=== PATIENT | male | born 1945 | race Hispanic/Latino ===

== ENCOUNTER 2017-09-23 00:17 | Inpatient (IN) | payer OTHER ==
[2017-09-23] VITALS (27 sets, daily range): BP systolic 89–144; BP diastolic 54–88
[~2017-09-23] VITALS: Ht 177.8 cm; Wt 70.5 kg
[~2017-09-23 00:17] MED LIST: ASPI-1197 PO; CELE-84 PO; CINN500C PO; FENO135C4 PO; ICOS1CAP PO; INVOK100TB PO; LACT10SO9 PO; LOSA25TA21 PO; METF500T6 PO; OMEG-75 PO; PANT40TA25 PO
[2017-09-23] MEDS ORDERED: IBUPROFEN 400 MG TABLET ONE (00:48)
[2017-09-23 01:05] LABS: APPEARANCE,URINE Clear (CLEAR); BILIRUBIN,URINE Negative (NEGATIVE); COLOR,URINE Dark Yellow (YELLOW); GLUCOSE, URINE (UA) >=1000 mg/dL (NEGATIVE); KETONES,URINE Negative (NEGATIVE); LEUKOCYTE ESTERASE ,URINE Negative (NEGATIVE); NITRATE,URINE Negative (NEGATIVE); OCCULT BLOOD,URINE Negative (NEGATIVE); PROTEIN,URINE Trace (NEGATIVE)
[2017-09-23 01:11] LABS: AMORPHOUS SEDIMENT,UR Few /LPF (None Seen); BACTERIA,URINE None Seen /HPF (None Seen); RBC,URINE None Seen /HPF (0-1); SQUAMOUS EPITHELIAL CELL,UR Rare /LPF (0-2); WBC,URINE None Seen /HPF (0-1); YEAST,URINE BUDDING None Seen /HPF (None Seen)
[2017-09-23] MEDS ORDERED: SODIUM CHLORIDE 0.9% 1000ML 1,000 ML IV ONE (04:18)
[2017-09-23] MEDS ORDERED: ONDANSETRON HCL 4 MG/2 ML VIAL ONE ×3 (04:18→15:27)
[2017-09-23] MEDS ORDERED: MORPHINE SULFATE 4 MG/1ML SYG ONE ×2 (04:19→11:15)
[2017-09-23 04:23] LABS: HEMATOCRIT 30.1 % (42-54); MEAN CORPUSCULAR HEMOGLOBIN 25.7 pg (27.0-33.0); MEAN CORPUSCULAR HGB CONC 33.8 g/dL (32.0-36.0); MEAN CORPUSCULAR VOLUME 76.1 fL (79-99); NUCLEATED RED BLOOD CELLS 0.1 % (0.0-0.19); PLATELET COUNT (AUTO) 245 K/uL (130-400); RED BLOOD CELL COUNT(AUTO) 3.95 MIL/uL (4.50-6.20); RED CELL DISTRIBUTION WIDTH 15.8 % (11.0-15.5); WHITE BLOOD COUNT (AUTO) 1.8 K/uL (4.8-10.8)
[2017-09-23 04:33] LABS: CREATININE 1.3 mg/dL (0.5-1.5); POTASSIUM 4.5 mmol/L (3.5-5.1)
[2017-09-23] MEDS ORDERED: IOPAMIDOL-370 75 ML VIAL IV ONE (04:39)
[2017-09-23 04:49] LABS: BAND NEUTROPHILS % (MANUAL) 21 % (0-2); LYMPHOCYTES % (MANUAL) 28 % (22-44); MAN.DIFF COMMENT-IMPRESSION MANUAL DIFFERENTIAL; METAMYELOCYTES % 2 % (0-0); MONOCYTES % (MANUAL) 5 % (2-9); REACTIVE LYMPHOCYTES 1 % (0-0); SEGMENTED NEUTROPHILS % 43 % (40-70)
[2017-09-23] MEDS ORDERED: ZOSYN 3.375GM+NS 50ML 50 ML IV ONE (06:46)
[2017-09-23] MEDS ORDERED: LIDOCAINE PF 2% 5ML ABBOJECT ONE (15:27)
[2017-09-23] MEDS ORDERED: ROCURONIUM BROMIDE 10MG/1ML 5ML VL ONE (15:27)
[2017-09-23] MEDS ORDERED: LIDOCAINE HCL-MPF 1% 5ML AMP IJ ONE (15:27)
[2017-09-23] MEDS ORDERED: DEXAMETHASONE SOD PHOSPHATE 10MG/ML 1ML VIAL ONE (15:27)
[2017-09-23] MEDS ORDERED: LIDOCAINE HCL 2% JELLY 5 ML ONE (15:27)
[2017-09-23] MEDS ORDERED: PHENYLEPHRINE HCL 10 MG/ML 1ML VIAL IV ONE (15:27)
[2017-09-23] MEDS ORDERED: NEOSTIGMINE METHYLSULFATE 1MG/ML IV ONE (15:27)
[2017-09-23] MEDS ORDERED: GLYCOPYRROLATE 0.2 MG/ML 5 ML VIAL ONE (15:27)
[2017-09-23] MEDS ORDERED: MIDAZOLAM HCL 1 MG/ML 2ML VIAL ONE (15:28)
[2017-09-23] MEDS ORDERED: FENTANYL CITRATE PF 50 MCG/1 ML 2ML VIAL ONE (15:28)
[2017-09-23] MEDS: SODIUM CHLORIDE 0.9% 1000ML 1,000 ML IV SCH (16:15)
[2017-09-23] MEDS ORDERED: MORPHINE SULFATE 2 MG/ML 1ML SYG IVP PRN (16:15)
[2017-09-23] MEDS ORDERED: HYDROCODONE/ACETAMINOPHEN 5/325 MG TAB PO PRN (16:15)
[2017-09-23] MEDS ORDERED: ISOVUE-370 50ML VIAL IV ONE (16:45)
[2017-09-23] MEDS ORDERED: BUPIVACAINE/PF 0.5% 30ML VIAL ONE (16:47)
[2017-09-23] MEDS ORDERED: ALBUMIN (HUMAN) 25% 50 ML IV ONE (16:51)
[2017-09-23] MEDS ORDERED: ZOSYN 3.375GM+NS 50ML 50 ML IV SCH (17:00)
[2017-09-23 18:35] LABS: CREATININE 1.1 mg/dL (0.5-1.5); POTASSIUM 4.5 mmol/L (3.5-5.1)
[2017-09-23] MEDS ORDERED: MEPERIDINE-PF 25 MG/ML SYG IV PRN (19:15)
[2017-09-23] MEDS ORDERED: TRAMADOL HCL 50 MG TABLET PO PRN (19:15)
[2017-09-23] MEDS ORDERED: ACETAMINOPHEN 325 MG TAB PO PRN (19:15)
[2017-09-23] MEDS ORDERED: UNASYN 3GM+NS 100ML 100 ML IV SCH (20:00)
[2017-09-24] VITALS: BP 94/58
[2017-09-24] MEDS: SODIUM CHLORIDE 0.9% 1000ML 1,000 ML IV SCH (02:15)
[2017-09-24 04:00] VITALS: BP 93/55
[2017-09-24] MEDS: ZOSYN 3.375GM+NS 50ML 50 ML IV SCH ×3 (04:00→20:40)
[2017-09-24] MEDS: ONDANSETRON HCL 4 MG/2 ML VIAL IVP PRN ×2 (05:37→12:21)
[2017-09-24 05:52] LABS: HEMATOCRIT 27.8 % (42-54); MEAN CORPUSCULAR HEMOGLOBIN 25.8 pg (27.0-33.0); MEAN CORPUSCULAR HGB CONC 33.5 g/dL (32.0-36.0); MEAN CORPUSCULAR VOLUME 76.8 fL (79-99); PLATELET COUNT (AUTO) 226 K/uL (130-400); RED BLOOD CELL COUNT(AUTO) 3.61 MIL/uL (4.50-6.20); RED CELL DISTRIBUTION WIDTH 16.4 % (11.0-15.5); WHITE BLOOD COUNT (AUTO) 3.2 K/uL (4.8-10.8)
[2017-09-24 05:53] LABS: CREATININE 0.9 mg/dL (0.5-1.5); POTASSIUM 4.5 mmol/L (3.5-5.1)
[2017-09-24 08:00] VITALS: BP 101/66
[2017-09-24 11:57] VITALS: BP 100/67
[2017-09-24] MEDS ORDERED: FUROSEMIDE 10 MG/ML 2ML VIAL IV SCH (12:15)
[2017-09-24] MEDS ORDERED: IPRATROPIUM/ALBUTEROL SULFATE 3 ML SOLUTION IH SCH (15:43)
[2017-09-24 16:00] VITALS: BP 105/68
[2017-09-24] MEDS: IPRATROPIUM/ALBUTEROL SULFATE 3 ML SOLUTION IH SCH (17:35)
[2017-09-24] MEDS: TRAMADOL HCL 50 MG TABLET PO PRN (18:04)
[2017-09-24 19:00] VITALS: BP 119/67
[2017-09-25] VITALS: BP 102/64
[2017-09-25] MEDS: IPRATROPIUM/ALBUTEROL SULFATE 3 ML SOLUTION IH SCH ×4 (00:15→18:11)
[2017-09-25 04:00] VITALS: BP 100/62
[2017-09-25 05:13] LABS: HEMATOCRIT 25.5 % (42-54); MEAN CORPUSCULAR HEMOGLOBIN 26.9 pg (27.0-33.0); MEAN CORPUSCULAR HGB CONC 34.8 g/dL (32.0-36.0); MEAN CORPUSCULAR VOLUME 77.2 fL (79-99); PLATELET COUNT (AUTO) 196 K/uL (130-400); RED BLOOD CELL COUNT(AUTO) 3.31 MIL/uL (4.50-6.20); RED CELL DISTRIBUTION WIDTH 16.3 % (11.0-15.5)
[2017-09-25 05:20] LABS: CREATININE 0.8 mg/dL (0.5-1.5)
[2017-09-25] MEDS: ZOSYN 3.375GM+NS 50ML 50 ML IV SCH ×3 (05:56→20:41)
[2017-09-25 08:00] VITALS: BP 104/71
[2017-09-25 12:00] VITALS: BP 96/56
[2017-09-25 16:00] VITALS: BP 101/68
[2017-09-25 19:00] VITALS: BP 105/70
[2017-09-25] MEDS: SODIUM CHLORIDE 0.9% 1000ML 1,000 ML IV SCH (20:47)
[2017-09-26] VITALS: BP 107/72
[2017-09-26] MEDS: IPRATROPIUM/ALBUTEROL SULFATE 3 ML SOLUTION IH SCH ×5 (00:36→23:57)
[2017-09-26 03:51] VITALS: BP 113/70
[2017-09-26] MEDS: ZOSYN 3.375GM+NS 50ML 50 ML IV SCH ×3 (04:35→20:37)
[2017-09-26 05:59] LABS: HEMATOCRIT 25.4 % (42-54); MEAN CORPUSCULAR HEMOGLOBIN 26.1 pg (27.0-33.0); MEAN CORPUSCULAR VOLUME 76.8 fL (79-99); PLATELET COUNT (AUTO) 172 K/uL (130-400); RED BLOOD CELL COUNT(AUTO) 3.31 MIL/uL (4.50-6.20); RED CELL DISTRIBUTION WIDTH 16.6 % (11.0-15.5)
[2017-09-26 06:07] LABS: CREATININE 0.7 mg/dL (0.5-1.5); POTASSIUM 3.8 mmol/L (3.5-5.1)
[2017-09-26 07:56] VITALS: BP 112/73
[2017-09-26] MEDS ORDERED: MAGNESIUM CITRATE 296 ML SOLUTION PO ONE (08:15)
[2017-09-26] MEDS ORDERED: BISACODYL 10 MG SUPP.RECT RC ONE (09:00)
[2017-09-26] MEDS: DOCUSATE SODIUM 100 MG CAP PO SCH ×2 (09:26→20:37)
[2017-09-26] MEDS: MAG HYDROX/AL HYDROX/SIMETH ES 30 ML SUSP UDCUP PO SCH (09:26)
[2017-09-26] MEDS ORDERED: MAGNESIUM CITRATE 296 ML SOLUTION PO SCH (10:00)
[2017-09-26 11:55] VITALS: BP 123/80
[2017-09-26] MEDS ORDERED: METOCLOPRAMIDE 10 MG/2 ML VIAL ONE (12:07)
[2017-09-26] MEDS: ONDANSETRON HCL 4 MG/2 ML VIAL IVP PRN (12:17)
[2017-09-26 16:09] VITALS: BP 104/73
[2017-09-26 20:40] VITALS: BP 122/74
[2017-09-26] MEDS: TRAMADOL HCL 50 MG TABLET PO PRN (20:52)
[2017-09-27 00:20] VITALS: BP 124/74
[2017-09-27] MEDS: METOCLOPRAMIDE 10 MG/2 ML VIAL IVP PRN ×3 (02:35→16:12)
[2017-09-27] MEDS: ZOSYN 3.375GM+NS 50ML 50 ML IV SCH ×3 (03:23→20:32)
[2017-09-27 03:46] VITALS: BP 107/69
[2017-09-27 05:43] LABS: MEAN CORPUSCULAR HEMOGLOBIN 26.5 pg (27.0-33.0); MEAN CORPUSCULAR HGB CONC 34.5 g/dL (32.0-36.0); MEAN CORPUSCULAR VOLUME 76.9 fL (79-99); NUCLEATED RED BLOOD CELLS 0.1 % (0.0-0.19); PLATELET COUNT (AUTO) 181 K/uL (130-400); RED BLOOD CELL COUNT(AUTO) 3.51 MIL/uL (4.50-6.20); WHITE BLOOD COUNT (AUTO) 4.9 K/uL (4.8-10.8)
[2017-09-27 05:53] LABS: CREATININE 0.7 mg/dL (0.5-1.5); POTASSIUM 3.7 mmol/L (3.5-5.1)
[2017-09-27] MEDS: IPRATROPIUM/ALBUTEROL SULFATE 3 ML SOLUTION IH SCH ×3 (06:50→18:42)
[2017-09-27 08:00] VITALS: BP 112/74
[2017-09-27] MEDS: ONDANSETRON HCL 4 MG/2 ML VIAL IVP PRN (08:33)
[2017-09-27] MEDS: DOCUSATE SODIUM 100 MG CAP PO SCH ×2 (08:33→20:30)
[2017-09-27] MEDS: SODIUM CHLORIDE 0.9% 1000ML 1,000 ML IV SCH (08:46)
[2017-09-27] MEDS: MAG HYDROX/AL HYDROX/SIMETH ES 30 ML SUSP UDCUP PO SCH (09:00)
[2017-09-27] MEDS ORDERED: DIATR MEGLU/DIATRIZOATE SODIUM 30 ML BOTTLE PO ONE (09:25)
[2017-09-27 16:00] VITALS: BP 121/90
[2017-09-27 20:23] VITALS: BP 112/78
[2017-09-27 23:39] VITALS: BP 110/73
[2017-09-28] VITALS (7 sets, daily range): BP systolic 98–110; BP diastolic 58–68
[2017-09-28] MEDS: IPRATROPIUM/ALBUTEROL SULFATE 3 ML SOLUTION IH SCH ×4 (00:38→19:10)
[2017-09-28] MEDS: ZOSYN 3.375GM+NS 50ML 50 ML IV SCH ×3 (03:45→21:31)
[2017-09-28 04:11] LABS: HEMATOCRIT 25.2 % (42-54); MEAN CORPUSCULAR HEMOGLOBIN 25.8 pg (27.0-33.0); MEAN CORPUSCULAR HGB CONC 33.5 g/dL (32.0-36.0); MEAN CORPUSCULAR VOLUME 76.8 fL (79-99); NUCLEATED RED BLOOD CELLS 0.1 % (0.0-0.19); PLATELET COUNT (AUTO) 172 K/uL (130-400); RED BLOOD CELL COUNT(AUTO) 3.28 MIL/uL (4.50-6.20); RED CELL DISTRIBUTION WIDTH 16.5 % (11.0-15.5); WHITE BLOOD COUNT (AUTO) 5.1 K/uL (4.8-10.8)
[2017-09-28 04:13] LABS: CREATININE 0.8 mg/dL (0.5-1.5); POTASSIUM 3.6 mmol/L (3.5-5.1)
[2017-09-28] MEDS ORDERED: DIATR MEGLU/DIATRIZOATE SODIUM 30 ML BOTTLE PO ONE (07:06)
[2017-09-28] MEDS ORDERED: IOPAMIDOL-370 75 ML VIAL IV ONE (07:06)
[2017-09-28] MEDS: MAG HYDROX/AL HYDROX/SIMETH ES 30 ML SUSP UDCUP PO SCH (12:38)
[2017-09-28] MEDS: DOCUSATE SODIUM 100 MG CAP PO SCH ×2 (12:38→21:29)
[2017-09-29] MEDS: IPRATROPIUM/ALBUTEROL SULFATE 3 ML SOLUTION IH SCH ×5 (00:06→23:44)
[2017-09-29 04:00] VITALS: BP 103/62
[2017-09-29 04:02] LABS: HEMATOCRIT 21.7 % (42-54); MEAN CORPUSCULAR HEMOGLOBIN 26.6 pg (27.0-33.0); MEAN CORPUSCULAR HGB CONC 34.6 g/dL (32.0-36.0); MEAN CORPUSCULAR VOLUME 76.9 fL (79-99); NUCLEATED RED BLOOD CELLS 0.2 % (0.0-0.19); PLATELET COUNT (AUTO) 163 K/uL (130-400); RED BLOOD CELL COUNT(AUTO) 2.83 MIL/uL (4.50-6.20); RED CELL DISTRIBUTION WIDTH 16.4 % (11.0-15.5)
[2017-09-29 04:13] LABS: CREATININE 0.6 mg/dL (0.5-1.5)
[2017-09-29] MEDS: ZOSYN 3.375GM+NS 50ML 50 ML IV SCH ×3 (05:23→21:04)
[2017-09-29 08:00] VITALS: BP 103/65
[2017-09-29 08:39] LABS: INR 1.04 (0.85-1.15); PROTHROMBIN TIME 10.9 SEC (9.6-11.6)
[2017-09-29] MEDS: DOCUSATE SODIUM 100 MG CAP PO SCH ×2 (09:00→21:06)
[2017-09-29] MEDS: MAG HYDROX/AL HYDROX/SIMETH ES 30 ML SUSP UDCUP PO SCH (09:00)
[2017-09-29 11:00] VITALS: BP 100/65
[2017-09-29] MEDS ORDERED: FENTANYL CITRATE PF 50 MCG/1 ML 2ML VIAL ONE (13:15)
[2017-09-29 16:00] VITALS: BP 118/65
[2017-09-29] MEDS ORDERED: LORAZEPAM 2 MG/ML 1 ML VIAL IVP PRN (18:45)
[2017-09-29 19:00] VITALS: BP 100/48
[2017-09-29] MEDS ORDERED: METOCLOPRAMIDE 10 MG TABLET ONE (21:14)
[2017-09-29] MEDS: METOCLOPRAMIDE 10 MG TABLET PO SCH (21:16)
[2017-09-29 23:47] VITALS: BP 115/69
[2017-09-30] MEDS: ZOSYN 3.375GM+NS 50ML 50 ML IV SCH ×3 (03:06→20:32)
[2017-09-30 04:00] VITALS: BP 109/63
[2017-09-30 04:22] LABS: HEMATOCRIT 21.5 % (42-54); MEAN CORPUSCULAR HEMOGLOBIN 27.2 pg (27.0-33.0); MEAN CORPUSCULAR HGB CONC 35.5 g/dL (32.0-36.0); MEAN CORPUSCULAR VOLUME 76.6 fL (79-99); NUCLEATED RED BLOOD CELLS 0.1 % (0.0-0.19); PLATELET COUNT (AUTO) 183 K/uL (130-400); RED CELL DISTRIBUTION WIDTH 15.9 % (11.0-15.5); WHITE BLOOD COUNT (AUTO) 4.5 K/uL (4.8-10.8)
[2017-09-30 04:44] LABS: CREATININE 0.5 mg/dL (0.5-1.5)
[2017-09-30 05:02] LABS: POTASSIUM 2.7 mmol/L (3.5-5.1)
[2017-09-30] MEDS: METOCLOPRAMIDE 10 MG TABLET PO SCH ×3 (06:17→18:26)
[2017-09-30] MEDS: IPRATROPIUM/ALBUTEROL SULFATE 3 ML SOLUTION IH SCH ×4 (06:27→23:32)
[2017-09-30] MEDS ORDERED: POTASSIUM CHLORIDE 10% ELIXIR 20 MEQ/15 ML UDCUP PO PRN (08:00)
[2017-09-30] MEDS ORDERED: LIDOCAINE HCL-MPF 1% 2ML VIAL IVP PRN (08:00)
[2017-09-30] MEDS: MAG HYDROX/AL HYDROX/SIMETH ES 30 ML SUSP UDCUP PO SCH (09:00)
[2017-09-30 09:01] VITALS: BP 101/58
[2017-09-30] MEDS: DOCUSATE SODIUM 100 MG CAP PO SCH ×2 (09:01→20:32)
[2017-09-30] MEDS: LORAZEPAM 2 MG/ML 1 ML VIAL IVP PRN (10:59)
[2017-09-30] MEDS: POTASSIUM CHLORIDE 20 MEQ ERTAB PO PRN ×4 (11:22→18:26)
[2017-09-30 12:53] VITALS: BP 101/64
[2017-09-30] MEDS ORDERED: MAGNESIUM CITRATE 296 ML SOLUTION PO SCH (13:30)
[2017-09-30 16:00] VITALS: BP 98/57
[2017-09-30] MEDS: MAGNESIUM HYDROXIDE 30 ML/UDCUP PO SCH (16:06)
[2017-09-30] MEDS: BISACODYL 10 MG SUPP.RECT RC SCH (16:07)
[2017-09-30 19:10] VITALS: BP 115/71
[2017-09-30 23:00] VITALS: BP 96/58
[2017-10-01] MEDS: METOCLOPRAMIDE 10 MG TABLET PO SCH ×4 (01:50→17:21)
[2017-10-01 03:00] VITALS: BP 95/56
[2017-10-01 04:08] LABS: HEMATOCRIT 22.8 % (42-54); MEAN CORPUSCULAR HEMOGLOBIN 26.8 pg (27.0-33.0); MEAN CORPUSCULAR HGB CONC 34.9 g/dL (32.0-36.0); MEAN CORPUSCULAR VOLUME 76.8 fL (79-99); NUCLEATED RED BLOOD CELLS 0.4 % (0.0-0.19); PLATELET COUNT (AUTO) 228 K/uL (130-400); RED BLOOD CELL COUNT(AUTO) 2.97 MIL/uL (4.50-6.20); RED CELL DISTRIBUTION WIDTH 15.9 % (11.0-15.5); WHITE BLOOD COUNT (AUTO) 4.5 K/uL (4.8-10.8)
[2017-10-01 04:23] LABS: CREATININE 0.5 mg/dL (0.5-1.5)
[2017-10-01 04:26] LABS: POTASSIUM 2.8 mmol/L (3.5-5.1)
[2017-10-01] MEDS: ZOSYN 3.375GM+NS 50ML 50 ML IV SCH ×3 (04:31→21:06)
[2017-10-01] MEDS: POTASSIUM CHLORIDE 20MEQ/100ML 100 ML IV PRN ×2 (04:34→17:19)
[2017-10-01] MEDS: IPRATROPIUM/ALBUTEROL SULFATE 3 ML SOLUTION IH SCH ×4 (07:38→23:48)
[2017-10-01 08:19] VITALS: BP 104/67
[2017-10-01] MEDS: DOCUSATE SODIUM 100 MG CAP PO SCH ×2 (09:13→21:06)
[2017-10-01] MEDS: MAGNESIUM HYDROXIDE 30 ML/UDCUP PO SCH (09:13)
[2017-10-01] MEDS: LORAZEPAM 2 MG/ML 1 ML VIAL IVP PRN (09:29)
[2017-10-01] MEDS: MAG HYDROX/AL HYDROX/SIMETH ES 30 ML SUSP UDCUP PO SCH (10:53)
[2017-10-01 12:18] VITALS: BP 95/57
[2017-10-01] MEDS: BISACODYL 10 MG SUPP.RECT RC SCH (13:30)
[2017-10-01 15:46] VITALS: BP 101/62
[2017-10-01 19:00] VITALS: BP 109/69
[2017-10-01 23:00] VITALS: BP 104/60
[2017-10-02] MEDS: METOCLOPRAMIDE 10 MG TABLET PO SCH ×4 (00:45→17:06)
[2017-10-02 03:00] VITALS: BP 100/60
[2017-10-02] MEDS: ZOSYN 3.375GM+NS 50ML 50 ML IV SCH ×3 (04:23→19:58)
[2017-10-02 05:48] LABS: CREATININE 0.6 mg/dL (0.5-1.5); POTASSIUM 3.6 mmol/L (3.5-5.1)
[2017-10-02] MEDS: IPRATROPIUM/ALBUTEROL SULFATE 3 ML SOLUTION IH SCH ×4 (06:01→23:44)
[2017-10-02 08:04] VITALS: BP 105/64
[2017-10-02] MEDS: DOCUSATE SODIUM 100 MG CAP PO SCH ×2 (08:18→19:58)
[2017-10-02] MEDS: MAGNESIUM HYDROXIDE 30 ML/UDCUP PO SCH ×2 (08:19→13:44)
[2017-10-02] MEDS: MAG HYDROX/AL HYDROX/SIMETH ES 30 ML SUSP UDCUP PO SCH (08:51)
[2017-10-02 11:54] VITALS: BP 131/62
[2017-10-02] MEDS: POTASSIUM CHLORIDE 20 MEQ ERTAB PO PRN ×2 (13:44→17:07)
[2017-10-02 16:27] VITALS: BP 110/68
[2017-10-02 19:00] VITALS: BP 110/74
[2017-10-02] MEDS: TRAMADOL HCL 50 MG TABLET PO PRN (19:59)
[2017-10-02 23:00] VITALS: BP 108/63
[2017-10-03] MEDS: METOCLOPRAMIDE 10 MG TABLET PO SCH ×4 (00:14→23:34)
[2017-10-03 03:00] VITALS: BP 100/64
[2017-10-03] MEDS ORDERED: MORPHINE SULFATE 2 MG/ML 1ML SYG ONE (03:07)
[2017-10-03] MEDS: ZOSYN 3.375GM+NS 50ML 50 ML IV SCH ×3 (03:11→20:54)
[2017-10-03] MEDS: ONDANSETRON HCL 4 MG/2 ML VIAL IVP PRN (03:12)
[2017-10-03] MEDS ORDERED: MORPHINE SULFATE 2 MG/ML 1ML SYG IVP PRN (03:15)
[2017-10-03 05:51] LABS: HEMATOCRIT 23.9 % (42-54); MEAN CORPUSCULAR HEMOGLOBIN 26.9 pg (27.0-33.0); MEAN CORPUSCULAR HGB CONC 34.4 g/dL (32.0-36.0); MEAN CORPUSCULAR VOLUME 78.2 fL (79-99); NUCLEATED RED BLOOD CELLS 0.3 % (0.0-0.19); PLATELET COUNT (AUTO) 340 K/uL (130-400); RED BLOOD CELL COUNT(AUTO) 3.06 MIL/uL (4.50-6.20); RED CELL DISTRIBUTION WIDTH 16.5 % (11.0-15.5); WHITE BLOOD COUNT (AUTO) 6.6 K/uL (4.8-10.8)
[2017-10-03 06:00] LABS: CREATININE 0.5 mg/dL (0.5-1.5); POTASSIUM 3.7 mmol/L (3.5-5.1)
[2017-10-03] MEDS: METFORMIN HCL 500 MG TABLET PO SCH (06:25)
[2017-10-03] MEDS: IPRATROPIUM/ALBUTEROL SULFATE 3 ML SOLUTION IH SCH ×3 (06:52→18:02)
[2017-10-03 08:00] VITALS: BP_SYST 100; BP_SYST 111; BP_DIAS 62; BP_DIAS 66
[2017-10-03] MEDS: LOSARTAN 50 MG TABLET PO SCH (09:00)
[2017-10-03] MEDS: FISH OIL 1000 MG/CAP PO SCH ×2 (09:04→20:54)
[2017-10-03] MEDS: CELECOXIB 200 MG CAP PO SCH (09:04)
[2017-10-03] MEDS: FENOFIBRATE NANOCRYSTALLIZED 145 MG TAB PO SCH (09:05)
[2017-10-03] MEDS: DOCUSATE SODIUM 100 MG CAP PO SCH ×2 (09:05→20:54)
[2017-10-03] MEDS: PANTOPRAZOLE SODIUM 40 MG TABLET.DR PO SCH (09:05)
[2017-10-03] MEDS: ASPIRIN 81MG TAB.CHEW PO SCH (09:06)
[2017-10-03] MEDS: MAG HYDROX/AL HYDROX/SIMETH ES 30 ML SUSP UDCUP PO SCH (09:16)
[2017-10-03 11:00] VITALS: BP 100/62
[2017-10-03 16:00] VITALS: BP 104/58
[2017-10-03 19:00] VITALS: BP 97/55
[2017-10-03] MEDS: TRAMADOL HCL 50 MG TABLET PO PRN (20:55)
[2017-10-03 23:00] VITALS: BP 90/60
[2017-10-04] VITALS (7 sets, daily range): BP systolic 86–120; BP diastolic 52–76
[2017-10-04] MEDS ORDERED: ALBUTEROL SULFATE 0.083% 2.5 MG/3 ML INH IH ONE (00:19)
[2017-10-04] MEDS ORDERED: IPRATROPIUM 0.5 MG/2.5 ML INH IH ONE (00:19)
[2017-10-04] MEDS: ZOSYN 3.375GM+NS 50ML 50 ML IV SCH ×3 (03:58→21:01)
[2017-10-04] MEDS: METOCLOPRAMIDE 10 MG TABLET PO SCH ×3 (06:06→17:47)
[2017-10-04] MEDS: METFORMIN HCL 500 MG TABLET PO SCH ×2 (06:06→09:06)
[2017-10-04] MEDS: IPRATROPIUM/ALBUTEROL SULFATE 3 ML SOLUTION IH SCH ×4 (06:58→20:31)
[2017-10-04] MEDS: ASPIRIN 81MG TAB.CHEW PO SCH (09:06)
[2017-10-04] MEDS: DOCUSATE SODIUM 100 MG CAP PO SCH ×2 (09:06→21:01)
[2017-10-04] MEDS: FENOFIBRATE NANOCRYSTALLIZED 145 MG TAB PO SCH (09:06)
[2017-10-04] MEDS: PANTOPRAZOLE SODIUM 40 MG TABLET.DR PO SCH (09:06)
[2017-10-04] MEDS: FISH OIL 1000 MG/CAP PO SCH ×2 (09:06→21:01)
[2017-10-04] MEDS: LOSARTAN 50 MG TABLET PO SCH (09:07)
[2017-10-04] MEDS: CELECOXIB 200 MG CAP PO SCH (09:07)
[2017-10-05] VITALS (7 sets, daily range): BP systolic 82–102; BP diastolic 46–67
[2017-10-05] MEDS: METOCLOPRAMIDE 10 MG TABLET PO SCH ×5 (00:18→23:23)
[2017-10-05] MEDS: IPRATROPIUM/ALBUTEROL SULFATE 3 ML SOLUTION IH SCH ×5 (01:12→23:34)
[2017-10-05] MEDS: ZOSYN 3.375GM+NS 50ML 50 ML IV SCH ×2 (03:10→12:18)
[2017-10-05] MEDS: METFORMIN HCL 500 MG TABLET PO SCH ×3 (06:22→17:57)
[2017-10-05] MEDS: CELECOXIB 200 MG CAP PO SCH (08:49)
[2017-10-05] MEDS: LOSARTAN 50 MG TABLET PO SCH (08:49)
[2017-10-05] MEDS: FENOFIBRATE NANOCRYSTALLIZED 145 MG TAB PO SCH (08:49)
[2017-10-05] MEDS: PANTOPRAZOLE SODIUM 40 MG TABLET.DR PO SCH (08:49)
[2017-10-05] MEDS: DOCUSATE SODIUM 100 MG CAP PO SCH ×2 (08:49→20:59)
[2017-10-05] MEDS: ASPIRIN 81MG TAB.CHEW PO SCH (08:49)
[2017-10-05] MEDS ORDERED: CEFTRIAXONE 2GM+NS 100ML 100 ML IV SCH (17:00)
[2017-10-05] MEDS ORDERED: WATER FOR INJECTION,STERILE 20 ML VIAL IJ SCH (18:00)
[2017-10-05] MEDS ORDERED: CEFTRIAXONE SODIUM 2 GM VIAL IVP SCH (18:00)
[2017-10-05] MEDS: FISH OIL 1000 MG/CAP PO SCH (20:59)
[2017-10-05] MEDS: BENZOCAINE/MENTH/CETYLPYRD CL 1 EACH LOZENGE MM PRN (22:01)
[2017-10-06] VITALS (7 sets, daily range): BP systolic 86–102; BP diastolic 54–65
[2017-10-06] MEDS: BENZOCAINE/MENTH/CETYLPYRD CL 1 EACH LOZENGE MM PRN (02:51)
[2017-10-06 04:15] LABS: HEMATOCRIT 23.5 % (42-54); MEAN CORPUSCULAR HGB CONC 33.1 g/dL (32.0-36.0); MEAN CORPUSCULAR VOLUME 78.4 fL (79-99); NUCLEATED RED BLOOD CELLS 0.1 % (0.0-0.19); PLATELET COUNT (AUTO) 426 K/uL (130-400); RED CELL DISTRIBUTION WIDTH 17.4 % (11.0-15.5); WHITE BLOOD COUNT (AUTO) 10.1 K/uL (4.8-10.8)
[2017-10-06 04:32] LABS: ALBUMIN 1.6 g/dL (3.5-5.0); BILIRUBIN,TOTAL 0.4 mg/dL (0.2-1.0); CREATININE 0.7 mg/dL (0.5-1.5); MAGNESIUM 1.9 mg/dL (1.80-2.40); POTASSIUM 3.8 mmol/L (3.5-5.1); TOTAL PROTEIN, SERUM 5.6 g/dL (6.0-8.3)
[2017-10-06] MEDS: METOCLOPRAMIDE 10 MG TABLET PO SCH ×2 (05:36→13:01)
[2017-10-06] MEDS: IPRATROPIUM/ALBUTEROL SULFATE 3 ML SOLUTION IH SCH ×2 (06:39→11:15)
[2017-10-06] MEDS: METFORMIN HCL 500 MG TABLET PO SCH ×2 (06:39→13:02)
[2017-10-06] MEDS ORDERED: LIDOCAINE HCL 1% MDV 50ML VIAL ONE (10:38)
[2017-10-06] MEDS ORDERED: ISOVUE-300 100 ML VIAL IV ONE (10:38)
[2017-10-06] MEDS: LOSARTAN 50 MG TABLET PO SCH (13:01)
[2017-10-06] MEDS: FENOFIBRATE NANOCRYSTALLIZED 145 MG TAB PO SCH (13:01)
[2017-10-06] MEDS: CELECOXIB 200 MG CAP PO SCH (13:01)
[2017-10-06] MEDS: PANTOPRAZOLE SODIUM 40 MG TABLET.DR PO SCH (13:02)
[2017-10-06] MEDS: DOCUSATE SODIUM 100 MG CAP PO SCH (13:02)
[2017-10-06] MEDS: ASPIRIN 81MG TAB.CHEW PO SCH (13:02)
[2017-10-06] MEDS: FISH OIL 1000 MG/CAP PO SCH (13:02)
== END 2017-10-06 17:20 | DRG 853 ==
LOC: EDH 00:17 → EDHIP 07:55 → 3BH 12:40
PROVIDERS: ADMIT Internal Medicine; ATTEND Internal Medicine
PROC: 0BH17EZ Insertion of Endotracheal Airway into Trachea, Via Natural or Artificial Opening (ICD-10-PCS; 2017-09-23)
PROC: BF101ZZ Fluoroscopy of Bile Ducts using Low Osmolar Contrast (ICD-10-PCS; 2017-09-23)
PROC: 0FT44ZZ Resection of Gallbladder, Percutaneous Endoscopic Approach (ICD-10-PCS; principal; 2017-09-23 16:15)
PROC: 5A1935Z Respiratory Ventilation, Less than 24 Consecutive Hours (ICD-10-PCS; 2017-09-23 16:15)
DX: A41.9 Sepsis, unspecified organism (principal); K65.8 Other peritonitis; E87.70 Fluid overload, unspecified; K81.2 Acute cholecystitis with chronic cholecystitis; D70.1 Agranulocytosis secondary to cancer chemotherapy; J44.9 Chronic obstructive pulmonary disease, unspecified; D64.9 Anemia, unspecified; E11.9 Type 2 diabetes mellitus without complications; E66.9 Obesity, unspecified; E87.6 Hypokalemia; T45.1X5A Adverse effect of antineoplastic and immunosuppressive drugs, initial encounter; E78.5 Hyperlipidemia, unspecified; I10 Essential (primary) hypertension; K82.8 Other specified diseases of gallbladder; Z68.22 Body mass index [BMI] 22.0-22.9, adult; Z85.048 Personal history of other malignant neoplasm of rectum, rectosigmoid junction, and anus; Z80.6 Family history of leukemia
CPT/HCPCS: 10030; 36415; 49424; 71010; 74177; 74250; 74300; 76080; 76705; 77012; 80048; 80053; 81001; 82948; 83735; 85025; 85027; 85610; 85730; 87071; 87076; 87205; 88304; 94002; 94640; 94664; 97039; C1758; J0295; J0696; J1100; J1940; J2001; J2060; J2175; J2250; J2270; J2370; J2405; J2543; J2710; J2765; J3010; J3480; J3490; J7030; P9047; Q9963; Q9967

== ENCOUNTER 2017-10-25 07:07 | Day surgery (SDC) | payer OTHER ==
[~2017-10-25] VITALS: Ht 177.8 cm; Wt 63.5 kg
[2017-10-25 08:09] VITALS: BP 91/64
[2017-10-25] MEDS ORDERED: ISOVUE-370 50ML VIAL IV ONE (08:56)
[2017-10-25 09:41] VITALS: BP 89/56
[2017-10-25 09:55] VITALS: BP 90/56
[2017-10-25 10:10] VITALS: BP 90/56
== END 2017-10-25 10:10 ==
LOC: CLH 07:07 → DAH 07:07 → CLH 10:10
PROVIDERS: ATTEND Internal Medicine Infectious Disease
DX: T81.4XXA Infection following a procedure, initial encounter (principal); K65.1 Peritoneal abscess; I10 Essential (primary) hypertension; E11.9 Type 2 diabetes mellitus without complications; E78.5 Hyperlipidemia, unspecified; Z79.899 Other long term (current) drug therapy; Z79.84 Long term (current) use of oral hypoglycemic drugs; K21.9 Gastro-esophageal reflux disease without esophagitis
CPT/HCPCS: 49424; 76080; 82948; Q9967

== ENCOUNTER 2017-11-04 06:44 | Day surgery (SDC) | payer OTHER ==
[2017-11-04 07:10] VITALS: BP 94/62
[2017-11-04 07:31] VITALS: BP 98/65
[2017-11-04 08:24] LABS: BASOPHILS % (AUTO) 0.5 % (0.0-5.0); EOSINOPHILS % (AUTO) 0.5 % (0.0-8.0); HEMATOCRIT 22.7 % (42-54); LYMPHOCYTES % (AUTO) 9.8 % (21.0-51.0); MEAN CORPUSCULAR HEMOGLOBIN 27.7 pg (27.0-33.0); MEAN CORPUSCULAR HGB CONC 34.1 g/dL (32.0-36.0); MEAN CORPUSCULAR VOLUME 81.2 fL (79-99); MONOCYTES % (AUTO) 3.9 % (3.0-13.0); NEUTROPHILS % (AUTO) 85.3 % (40.0-77.0); NUCLEATED RED BLOOD CELLS 0.1 % (0.0-0.19); PLATELET COUNT (AUTO) 315 K/uL (130-400); RED CELL DISTRIBUTION WIDTH 21.8 % (11.0-15.5); WHITE BLOOD COUNT (AUTO) 11.5 K/uL (4.8-10.8)
[2017-11-04] MEDS ORDERED: SODIUM CHLORIDE 0.9% 1000ML 1,000 ML IV ONE (08:38)
[2017-11-04 08:43] LABS: INR 1.13 (0.85-1.15); PARTIAL THROMBOPLASTIN TIME 31.8 SEC (26.3-35.5); PROTHROMBIN TIME 11.8 SEC (9.6-11.6)
[2017-11-04] MEDS ORDERED: ISOVUE-300 100 ML VIAL IV ONE (09:36)
[2017-11-04] MEDS ORDERED: LIDOCAINE HCL 1% MDV 50ML VIAL ONE (09:36)
[2017-11-04 10:30] VITALS: BP 83/50
[2017-11-04 10:45] VITALS: BP 88/58
[2017-11-04 11:00] VITALS: BP 85/56
== END 2017-11-04 11:05 | disposition home or self-care (01) ==
LOC: DAH 06:44
PROVIDERS: ATTEND Internal Medicine Infectious Disease
DX: T85.9XXA Unspecified complication of internal prosthetic device, implant and graft, initial encounter (principal); K21.9 Gastro-esophageal reflux disease without esophagitis; Z79.899 Other long term (current) drug therapy; Z80.0 Family history of malignant neoplasm of digestive organs; I10 Essential (primary) hypertension; E78.5 Hyperlipidemia, unspecified; E11.9 Type 2 diabetes mellitus without complications; D70.8 Other neutropenia; L02.214 Cutaneous abscess of groin; Z79.84 Long term (current) use of oral hypoglycemic drugs; Z79.4 Long term (current) use of insulin; Z79.01 Long term (current) use of anticoagulants; Y83.1 Surgical operation with implant of artificial internal device as the cause of abnormal reaction of the patient, or of later complication, without mention of misadventure at the time of the procedure
CPT/HCPCS: 36415; 49424; 76080; 82948; 85025; 85610; 85730; A4606; J7030; Q9967; J3490

== ENCOUNTER → 2017-11-15 | Outpatient (CLI) | payer OTHER ==
[~2017-11-15] MED LIST changes: +ONDA4TAB9 PO; +SILV50CR31 TP; +SULF1TAB3 PO
[2017-11-15 08:33] LABS: CREATININE 0.9 mg/dL (0.5-1.5); POTASSIUM 4.6 mmol/L (3.5-5.1)
== END | disposition home or self-care (01) ==
LOC: LAB 07:44
PROVIDERS: ATTEND Surgery
DX: C80.1 Malignant (primary) neoplasm, unspecified (principal)
CPT/HCPCS: 36415; 80048

== ENCOUNTER 2017-11-17 12:16 | Inpatient (IN) | payer OTHER ==
[~2017-11-17] VITALS: Ht 177.8 cm; Wt 62.1 kg
[~2017-11-17 12:16] MED LIST changes: -ONDA4TAB9 PO; -SILV50CR31 TP; -SULF1TAB3 PO
[2017-11-17] MEDS ORDERED: SODIUM CHLORIDE 0.9% 1000ML 1,000 ML IV ONE (13:28)
[2017-11-17 14:20] LABS: BASOPHILS % (AUTO) 0.2 % (0.0-5.0); EOSINOPHILS % (AUTO) 0.1 % (0.0-8.0); LYMPHOCYTES % (AUTO) 13.2 % (21.0-51.0); MEAN CORPUSCULAR HEMOGLOBIN 26.8 pg (27.0-33.0); MEAN CORPUSCULAR VOLUME 81.3 fL (79-99); MONOCYTES % (AUTO) 4.9 % (3.0-13.0); NEUTROPHILS % (AUTO) 81.6 % (40.0-77.0); NUCLEATED RED BLOOD CELLS 0.3 % (0.0-0.19); PLATELET COUNT (AUTO) 84 K/uL (130-400); RED BLOOD CELL COUNT(AUTO) 2.38 MIL/uL (4.50-6.20); WHITE BLOOD COUNT (AUTO) 4.6 K/uL (4.8-10.8)
[2017-11-17 14:24] LABS: HEMATOCRIT 19.4 % (42-54)
[2017-11-17 14:37] LABS: CREATININE 0.8 mg/dL (0.5-1.5); POTASSIUM 4.1 mmol/L (3.5-5.1)
[2017-11-17 14:40] LABS: ALBUMIN 1.7 g/dL (3.5-5.0); BILIRUBIN,TOTAL 0.5 mg/dL (0.2-1.0); TOTAL PROTEIN, SERUM 6.2 g/dL (6.0-8.3)
[2017-11-17 15:52] LABS: INR 1.08 (0.85-1.15); PARTIAL THROMBOPLASTIN TIME 31.1 SEC (26.3-35.5); PROTHROMBIN TIME 11.3 SEC (9.6-11.6)
[2017-11-17] MEDS ORDERED: ACETAMINOPHEN 325 MG TAB ONE (17:20)
[2017-11-17 19:00] VITALS: BP 84/57
[2017-11-17] MEDS ORDERED: MORPHINE SULFATE 2 MG/ML 1ML SYG IVP PRN (20:30)
[2017-11-17] MEDS ORDERED: ACETAMINOPHEN 325 MG TAB PO PRN (20:30)
[2017-11-17] MEDS ORDERED: ONDANSETRON HCL 4 MG/2 ML VIAL IVP PRN (20:30)
[2017-11-17] MEDS ORDERED: GLUCAGON 1MG KIT 1 MG ML IM PRN (20:30)
[2017-11-17] MEDS ORDERED: DEXTROSE 50%-WATER 50 ML DISP.SYRIN IV PRN (20:30)
[2017-11-17] MEDS: INSULIN R PO SS1 SQ SCH (21:00)
[2017-11-17 23:00] VITALS: BP 85/57
[2017-11-18] MEDS: LACTATED RINGERS 1000ML 1,000 ML IV SCH ×3 (00:41→16:45)
[2017-11-18] MEDS ORDERED: ONDA4TAB9 PO (01:29)
[2017-11-18] MEDS ORDERED: SILV50CR31 TP (01:29)
[2017-11-18] MEDS ORDERED: SULF1TAB3 PO (01:29)
[2017-11-18] MEDS ORDERED: INVOK100TB PO (01:29)
[2017-11-18] MEDS ORDERED: ICOS1CAP PO (01:29)
[2017-11-18] MEDS ORDERED: METF500T6 PO (01:29)
[2017-11-18 03:00] VITALS: BP 96/61
[2017-11-18 04:40] LABS: HEMATOCRIT 24.1 % (42-54); MEAN CORPUSCULAR HEMOGLOBIN 29.3 pg (27.0-33.0); MEAN CORPUSCULAR HGB CONC 35.5 g/dL (32.0-36.0); MEAN CORPUSCULAR VOLUME 82.6 fL (79-99); NUCLEATED RED BLOOD CELLS 0.4 % (0.0-0.19); PLATELET COUNT (AUTO) 84 K/uL (130-400); RED BLOOD CELL COUNT(AUTO) 2.92 MIL/uL (4.50-6.20); RED CELL DISTRIBUTION WIDTH 17.7 % (11.0-15.5); WHITE BLOOD COUNT (AUTO) 4.5 K/uL (4.8-10.8)
[2017-11-18 04:49] LABS: INR 1.06 (0.85-1.15); PARTIAL THROMBOPLASTIN TIME 30.7 SEC (26.3-35.5); PROTHROMBIN TIME 11.1 SEC (9.6-11.6)
[2017-11-18 04:54] LABS: ALBUMIN 1.6 g/dL (3.5-5.0); BILIRUBIN,TOTAL 0.5 mg/dL (0.2-1.0); CREATININE 0.5 mg/dL (0.5-1.5); MAGNESIUM 1.9 mg/dL (1.80-2.40); POTASSIUM 3.6 mmol/L (3.5-5.1); TOTAL PROTEIN, SERUM 5.6 g/dL (6.0-8.3)
[2017-11-18] MEDS: INSULIN R PO SS1 SQ SCH ×4 (06:24→21:00)
[2017-11-18 07:00] VITALS: BP 94/60
[2017-11-18] MEDS ORDERED: DIATR MEGLU/DIATRIZOATE SODIUM 30 ML BOTTLE PO ONE (07:55)
[2017-11-18] MEDS ORDERED: IOPAMIDOL-370 75 ML VIAL IV ONE (09:53)
[2017-11-18] MEDS: ENOXAPARIN SODIUM 30 MG/0.3 ML SQ SCH (10:20)
[2017-11-18 11:00] VITALS: BP 90/57
[2017-11-18 15:37] VITALS: BP 98/63
[2017-11-18 20:00] VITALS: BP 96/52
[2017-11-18 23:40] VITALS: BP 98/61
[2017-11-19] MEDS: LACTATED RINGERS 1000ML 1,000 ML IV SCH ×3 (00:31→20:46)
[2017-11-19 04:00] VITALS: BP 95/61
[2017-11-19] MEDS: INSULIN R PO SS1 SQ SCH ×4 (06:08→20:42)
[2017-11-19 07:00] VITALS: BP 90/57
[2017-11-19] MEDS: ENOXAPARIN SODIUM 30 MG/0.3 ML SQ SCH (09:53)
[2017-11-19 11:00] VITALS: BP 93/58
[2017-11-19 16:00] VITALS: BP 90/57
[2017-11-19 19:00] VITALS: BP 99/61
[2017-11-19 23:08] VITALS: BP 91/58
[2017-11-20 03:44] VITALS: BP 90/55
[2017-11-20] MEDS: INSULIN R PO SS1 SQ SCH ×4 (05:59→21:00)
[2017-11-20 06:39] LABS: HEMATOCRIT 24.8 % (42-54); MEAN CORPUSCULAR HGB CONC 35.6 g/dL (32.0-36.0); MEAN CORPUSCULAR VOLUME 81.3 fL (79-99); NUCLEATED RED BLOOD CELLS 0.5 % (0.0-0.19); PLATELET COUNT (AUTO) 93 K/uL (130-400); RED BLOOD CELL COUNT(AUTO) 3.05 MIL/uL (4.50-6.20); RED CELL DISTRIBUTION WIDTH 18.2 % (11.0-15.5); WHITE BLOOD COUNT (AUTO) 5.5 K/uL (4.8-10.8)
[2017-11-20 06:55] LABS: ALBUMIN 1.5 g/dL (3.5-5.0); BILIRUBIN,TOTAL 0.4 mg/dL (0.2-1.0); CREATININE 0.4 mg/dL (0.5-1.5); MAGNESIUM 1.8 mg/dL (1.80-2.40); POTASSIUM 3.6 mmol/L (3.5-5.1); TOTAL PROTEIN, SERUM 5.3 g/dL (6.0-8.3)
[2017-11-20 07:00] VITALS: BP 96/56
[2017-11-20] MEDS: LACTATED RINGERS 1000ML 1,000 ML IV SCH (08:45)
[2017-11-20] MEDS: ENOXAPARIN SODIUM 30 MG/0.3 ML SQ SCH (09:05)
[2017-11-20 11:00] VITALS: BP 100/60
[2017-11-20 16:00] VITALS: BP 113/73
[2017-11-20 19:00] VITALS: BP 123/74
[2017-11-20 23:00] VITALS: BP 108/62
[2017-11-20] MEDS ORDERED: BENZONATATE 100 MG CAPSULE PO ONE (23:26)
[2017-11-21] MEDS: LACTATED RINGERS 1000ML 1,000 ML IV SCH ×2 (02:52→20:24)
[2017-11-21 03:00] VITALS: BP 104/65
[2017-11-21] MEDS: INSULIN R PO SS1 SQ SCH ×4 (06:29→20:26)
[2017-11-21 08:00] VITALS: BP 105/62
[2017-11-21] MEDS: BENZONATATE 100 MG CAPSULE PO SCH ×3 (09:45→15:40)
[2017-11-21] MEDS: ENOXAPARIN SODIUM 30 MG/0.3 ML SQ SCH (09:47)
[2017-11-21 11:42] VITALS: BP 106/70
[2017-11-21 16:00] VITALS: BP 124/75
[2017-11-21 19:00] VITALS: BP 113/63
[2017-11-21 23:00] VITALS: BP 107/64
[2017-11-22] MEDS: BENZONATATE 100 MG CAPSULE PO SCH ×2 (00:15→10:06)
[2017-11-22 03:00] VITALS: BP 102/62
[2017-11-22] MEDS: LACTATED RINGERS 1000ML 1,000 ML IV SCH (06:01)
[2017-11-22] MEDS: INSULIN R PO SS1 SQ SCH (06:03)
[2017-11-22 07:00] VITALS: BP 109/65
[2017-11-22] MEDS: ENOXAPARIN SODIUM 30 MG/0.3 ML SQ SCH (09:00)
[2017-11-22 12:13] VITALS: BP 122/96
== END 2017-11-22 13:45 | disposition hospice, home (50) | DRG 371 ==
LOC: EDH 12:16 → EDHIP 15:50 → OBSVTOIN 15:50 → 3CH 20:21
PROVIDERS: ADMIT Internal Medicine Infectious Disease; ATTEND Internal Medicine Infectious Disease
PROC: 30233N1 Transfusion of Nonautologous Red Blood Cells into Peripheral Vein, Percutaneous Approach (ICD-10-PCS; principal; 2017-11-17)
DX: K65.1 Peritoneal abscess (principal); E43 Unspecified severe protein-calorie malnutrition; K63.2 Fistula of intestine; D69.6 Thrombocytopenia, unspecified; C19 Malignant neoplasm of rectosigmoid junction; C34.90 Malignant neoplasm of unspecified part of unspecified bronchus or lung; D64.9 Anemia, unspecified; Z68.1 Body mass index [BMI] 19.9 or less, adult; R62.7 Adult failure to thrive; E11.9 Type 2 diabetes mellitus without complications; I10 Essential (primary) hypertension; E78.5 Hyperlipidemia, unspecified; E66.9 Obesity, unspecified; Z87.440 Personal history of urinary (tract) infections; Z90.49 Acquired absence of other specified parts of digestive tract; Z87.81 Personal history of (healed) traumatic fracture; Z90.79 Acquired absence of other genital organ(s); Z80.6 Family history of leukemia; Z74.01 Bed confinement status; Z80.9 Family history of malignant neoplasm, unspecified; Z28.21 Immunization not carried out because of patient refusal
CPT/HCPCS: 36415; 36430; 71045; 74178; 80048; 80053; 82378; 82948; 83735; 85025; 85027; 85610; 85730; 86850; 86900; 86901; 86922; 93005; J1650; J7030; J7120; P9016; Q9963; Q9967